=== PATIENT | male | born 1990 | race Two or more races ===

== ENCOUNTER 2024-12-07 11:10 | Emergency (ER) | payer OTHER ==
[~2024-12-07] VITALS: Ht 180.3 cm; Wt 90.7 kg
[2024-12-07 11:46] LABS: BASOPHILS # (AUTO) 0.1 K/uL (0.0-0.2); BASOPHILS % (AUTO) 0.6 % (0.0-2.0); EOSINOPHILS # (AUTO) 0.1 K/uL (0.0-0.7); EOSINOPHILS % (AUTO) 0.6 % (0.0-6.0); HEMATOCRIT 49 % (39-51); HEMOGLOBIN 15.8 g/dL (13.5-17.5); LYMPHOCYTES # (AUTO) 2.7 K/uL (0.8-4.8); LYMPHOCYTES % (AUTO) 24.5 % (20.0-44.0); MEAN CORPUSCULAR HEMOGLOBIN 29 PG (26.0-33.0); MEAN CORPUSCULAR HGB CONC 33 g/dl (31.0-36.0); MEAN CORPUSCULAR VOLUME 89 fL (80-96); MONOCYTES # (AUTO) 0.5 K/uL (0.1-1.30); MONOCYTES % (AUTO) 4.2 % (2.0-12.0); NEUTROPHILS # (AUTO) 7.7 K/uL (1.8-8.9); NEUTROPHILS % (AUTO) 70.1 % (43.0-81.0); PLATELET COUNT (AUTO) 364 K/uL (150-450); RED BLOOD CELL COUNT(AUTO) 5.44 MIL/uL (4.5-6.0)
[2024-12-07] MEDS: IV NS 0.9% 1,000 ML BAG IV ONE (11:50)
[2024-12-07 11:52] LABS: APPEARANCE,URINE CLEAR (CLEAR); BILIRUBIN,URINE NEGATIVE (NEGATIVE); BLOOD, URINE NEGATIVE Ery/uL (NEGATIVE); COLOR,URINE YELLOW (YELLOW); KETONES,URINE NEGATIVE (NEGATIVE); LEUKOCYTE ESTERASE ,URINE TRACE (NEGATIVE); NITRITE, URINE NEGATIVE (NEGATIVE); PROTEIN,URINE NEGATIVE (NEGATIVE); UGLUCOSE NEGATIVE (NEGATIVE)
[2024-12-07 11:57] LABS: CALCIUM, SERUM 9.5 mg/dL (8.5-10.1); CREATININE 0.8 mg/dL (0.6-1.3); POTASSIUM 4.2 mmol/L (3.5-5.1)
[2024-12-07 12:05] LABS: BILIRUBIN,DIRECT 0.1 mg/dL (0.0-0.2); BILIRUBIN,TOTAL 0.4 mg/dL (0.2-1.0); TOTAL PROTEIN, SERUM 7.9 g/dL (6.4-8.2)
[2024-12-07 12:06] LABS: AMPHETAMINE, URINE NEGATIVE (NEGATIVE); BARBITURATE, URINE NEGATIVE (NEGATIVE); BENZODIAZEPINE, URINE NEGATIVE (NEGATIVE); CANNABINOID, URINE NEGATIVE (NEGATIVE); COCCAINE, URINE NEGATIVE (NEGATIVE); OPIATE, URINE NEGATIVE (NEGATIVE); PHENCYCLIDINE SCREEN,URINE NEGATIVE (NEGATIVE)
[2024-12-07] MEDS: ONDANSETRON HCL/PF 4 MG/2 ML VIAL IV ONE (12:10)
[2024-12-07 12:22] LABS: ADD URINE CULTURE NO; BACTERIA,URINE Rare /HPF (None Seen); RBC,URINE 0-2 /HPF (0-2); SQUAMOUS EPITHELIAL CELL,UR 0-2 /HPF (None Seen); WBC,URINE 0-2 /HPF (0-3)
[2024-12-07] MEDS ORDERED: LIDOCAINE VISCOUS 2% UD 15 ML UDC ONE (12:32)
[2024-12-07] MEDS ORDERED: MAG HYDROX/AL HYDROX/SIMETH 30 ML UDC ONE (12:32)
[2024-12-07] MEDS ORDERED: FAMOTIDINE/PF INJ 20 MG/2 ML VIAL IV ONE (12:32)
[2024-12-07] MEDS: MAG HYDROX/AL HYDROX/SIMETH 30 ML UDC PO ONE (12:38)
[2024-12-07] MEDS: FAMOTIDINE/PF INJ 20 MG/2 ML VIAL IV ONE (12:38)
[2024-12-07] MEDS: LIDOCAINE VISCOUS 2% UD 15 ML UDC MM ONE (12:38)
[2024-12-07] MEDS ORDERED: FAMO-131 PO (14:42)
[2024-12-07] MEDS ORDERED: ONDA4TAB5 PO (14:42)
[2024-12-07 14:58] VITALS: BP 132/88; TEMP 98.6; O2SAT 98
== END 2024-12-07 14:58 | disposition home or self-care (01) ==
LOC: ER 11:27
DX: R10.9 Unspecified abdominal pain (principal); R11.2 Nausea with vomiting, unspecified; F17.200 Nicotine dependence, unspecified, uncomplicated; F19.10 Other psychoactive substance abuse, uncomplicated; Z88.2 Allergy status to sulfonamides; Z87.19 Personal history of other diseases of the digestive system; Z60.2 Problems related to living alone; Z79.899 Other long term (current) drug therapy
CPT/HCPCS: 99285; 96374; 96361; 76705; 74176; 85025; 80048; 83690; 80076; 81001; 36415; 80320; 80307; J1308; J7030; A4223; G0480

== ENCOUNTER 2024-12-24 12:16 | Inpatient (IN) | payer OTHER ==
[~2024-12-24] VITALS: Ht 182.9 cm; Wt 93.4 kg
[~2024-12-24 12:16] MED LIST: FAMO-131 PO; ONDA4TAB5 PO
[2024-12-24] MEDS: IV NS 0.9% 1,000 ML BAG IV ONE ×2 (12:55)
[2024-12-24 12:59] LABS: PLATELET COUNT (AUTO) 330 K/uL (150-450); RED BLOOD CELL COUNT(AUTO) 5.38 MIL/uL (4.5-6.0); RED CELL DISTRIBUTION WIDTH 13.9 % (11.5-15.0); WHITE BLOOD COUNT (AUTO) 19.6 K/uL (4.3-11.0)
[2024-12-24] MEDS ORDERED: ONDANSETRON HCL/PF 4 MG/2 ML VIAL ONE (12:59)
[2024-12-24] MEDS ORDERED: MORPHINE SULFATE INJ 4 MG/ML DISP.SYRIN ONE (12:59)
[2024-12-24] MEDS: ONDANSETRON HCL/PF 4 MG/2 ML VIAL IVP ONE (13:02)
[2024-12-24] MEDS: MORPHINE SULFATE INJ 2 MG/ML DISP.SYRIN IV ONE (13:03)
[2024-12-24 13:06] LABS: CALCIUM, SERUM 9.2 mg/dL (8.5-10.1); CREATININE 1.0 mg/dL (0.6-1.3); SODIUM SERUM 138.0 mmol/L (136-145); UREA NITROGEN, BLOOD 8.0 mg/dL (7-18)
[2024-12-24 13:16] LABS: ASPARTATE AMINOTRANSFERASE 34.0 U/L (15-37); TOTAL PROTEIN, SERUM 7.8 g/dL (6.4-8.2)
[2024-12-24] MEDS ORDERED: PIPERACI/TAZO 3.375GM/D5W 50ML PB IV ONE (13:26)
[2024-12-24] MEDS: PIPERACILLIN /TAZOBACTAM 3.375 G in IV D5W 50 ML IV ONE (13:30)
[2024-12-24] MEDS ORDERED: HYDROMORPHONE 1 MG/1 ML DISP.SYRIN ONE (13:52)
[2024-12-24] MEDS: HYDROMORPHONE INJ 2 MG/ML DISP.SYRIN IV ONE (14:00)
[2024-12-24 14:07] LABS: LACTIC ACID 3.0 mmol/L (0.4-2.0)
[2024-12-24 14:30] VITALS: BP 144/80; TEMP 98.1; O2SAT 97
[2024-12-24] MEDS ORDERED: TRAZ-182 PO (14:41)
[2024-12-24] MEDS ORDERED: GABA300C PO (14:41)
[2024-12-24] MEDS ORDERED: ESCI10TA PO (14:41)
[2024-12-24] MEDS ORDERED: QUET200T PO (14:41)
[2024-12-24] MEDS ORDERED: DOSING PER PHARMACY-ZOSYN IV 1 EA EA XX PRN (16:00)
[2024-12-24] MEDS ORDERED: ACETAMINOPHEN 325 MG TABLET PO PRN (16:00)
[2024-12-24 16:40] VITALS: BP 128/69; TEMP 97.9; O2SAT 100
[2024-12-24] MEDS: ENOXAPARIN SODIUM 40 MG/0.4 ML DISP.SYRIN SQ SCH (16:42)
[2024-12-24] MEDS: IV NS 0.9% 1,000 ML IV PRN (16:51)
[2024-12-24 17:57] LABS: AMPHETAMINE, URINE NEGATIVE (NEGATIVE); BARBITURATE, URINE NEGATIVE (NEGATIVE); BENZODIAZEPINE, URINE NEGATIVE (NEGATIVE); CANNABINOID, URINE NEGATIVE (NEGATIVE); COCCAINE, URINE NEGATIVE (NEGATIVE)
[2024-12-24 17:58] LABS: OPIATE, URINE POSITIVE (NEGATIVE)
[2024-12-24 18:10] LABS: APPEARANCE,URINE CLEAR (CLEAR); BLOOD, URINE NEGATIVE Ery/uL (NEGATIVE); LEUKOCYTE ESTERASE ,URINE NEGATIVE (NEGATIVE); NITRITE, URINE NEGATIVE (NEGATIVE); UGLUCOSE NEGATIVE (NEGATIVE)
[2024-12-24] MEDS: HYDROMORPHONE 1 MG/1 ML DISP.SYRIN IV PRN (18:28)
[2024-12-24 20:00] VITALS: BP 125/63; TEMP 98.1; O2SAT 97
[2024-12-24 20:48] VITALS: BP 125/63; TEMP 98.1; O2SAT 97
[2024-12-24] MEDS: PIPERACILLIN /TAZOBACTAM 3.375 G in IV D5W 100 ML IV SCH (21:50)
[2024-12-24] MEDS: PANTOPRAZOLE 40 MG VIAL IV SCH (23:33)
[2024-12-25 07:05] LABS: PLATELET COUNT (AUTO) 303 K/uL (150-450); RED BLOOD CELL COUNT(AUTO) 5.02 MIL/uL (4.5-6.0); RED CELL DISTRIBUTION WIDTH 13.9 % (11.5-15.0); WHITE BLOOD COUNT (AUTO) 9.8 K/uL (4.3-11.0)
[2024-12-25 07:30] VITALS: BP 114/66; TEMP 98.1; O2SAT 96
[2024-12-25 07:41] LABS: CALCIUM, SERUM 8.7 mg/dL (8.5-10.1); CREATININE 0.9 mg/dL (0.6-1.3); PHOSPHORUS 4.0 mg/dL (2.5-4.9); SODIUM SERUM 142.0 mmol/L (136-145); UREA NITROGEN, BLOOD 9.0 mg/dL (7-18)
[2024-12-25 10:08] VITALS: TEMP 98.1
[2024-12-25 16:00] VITALS: BP 116/58; TEMP 98.1; O2SAT 98
[2024-12-25 20:00] VITALS: BP 121/82; TEMP 98.4; O2SAT 94
[2024-12-26 07:30] VITALS: BP 111/64; TEMP 97.5; O2SAT 97
[2024-12-26 09:41] LABS: PLATELET COUNT (AUTO) 301 K/uL (150-450); RED BLOOD CELL COUNT(AUTO) 5.05 MIL/uL (4.5-6.0); RED CELL DISTRIBUTION WIDTH 13.5 % (11.5-15.0); WHITE BLOOD COUNT (AUTO) 9.5 K/uL (4.3-11.0)
[2024-12-26 10:25] LABS: CALCIUM, SERUM 8.6 mg/dL (8.5-10.1); CREATININE 0.7 mg/dL (0.6-1.3); SODIUM SERUM 140.0 mmol/L (136-145); UREA NITROGEN, BLOOD 11.0 mg/dL (7-18)
[2024-12-26] MEDS: FAMOTIDINE (20 MG) 20 MG TABLET PO SCH (11:21)
[2024-12-26] MEDS ORDERED: GABAPENTIN 300 MG CAPSULE PO PRN (11:30)
[2024-12-26 11:34] LABS: ASPARTATE AMINOTRANSFERASE 56.0 U/L (15-37); TOTAL PROTEIN, SERUM 7.1 g/dL (6.4-8.2)
[2024-12-26] MEDS: HYDROCODONE/APAP 5/325MG TABLET PO PRN (14:17)
[2024-12-26 16:25] VITALS: BP 119/72; TEMP 98.1; O2SAT 97
[2024-12-26 20:00] VITALS: BP 119/90; TEMP 97.7; O2SAT 97
[2024-12-26] MEDS: ESCITALOPRAM OXALATE (10 MG) 10 MG TABLET PO SCH (21:24)
[2024-12-26] MEDS: QUETIAPINE FUMARATE 100 MG TABLET PO SCH (21:24)
[2024-12-26] MEDS: TRAZODONE 50 MG TABLET PO SCH (21:24)
[2024-12-27 07:30] VITALS: BP 107/63; TEMP 97.7; O2SAT 97
[2024-12-27] MEDS: PANTOPRAZOLE 40 MG/PACK PACK PO SCH (08:57)
[2024-12-27] MEDS: CHOLESTYRAMINE/ASPARTAME 4 G/PKT PACKET PO SCH (12:20)
[2024-12-27] MEDS: DICYCLOMINE HCL 10 MG CAPSULE PO SCH (12:20)
[2024-12-27 20:00] VITALS: BP 121/77; TEMP 98.4; O2SAT 96
[2024-12-28] MEDS: ONDANSETRON HCL/PF 4 MG/2 ML VIAL IVP PRN (03:46)
[2024-12-28] MEDS: HYDROCODONE/APAP 5/325MG TABLET PO STA (05:15)
[2024-12-28] MEDS ORDERED: CHOL4PAC4 PO (12:27)
== END 2024-12-28 10:00 | disposition home or self-care (01) | DRG 445 ==
LOC: ER 12:18 → MED 14:11
PROVIDERS: ADMIT Nurse Practitioner Acute Care; ATTEND Nurse Practitioner Acute Care
DX: K80.20 Calculus of gallbladder without cholecystitis without obstruction (principal); D68.69 Other thrombophilia; E87.20 Acidosis, unspecified; E66.9 Obesity, unspecified; Z88.2 Allergy status to sulfonamides; Z68.27 Body mass index [BMI] 27.0-27.9, adult; F11.10 Opioid abuse, uncomplicated; R74.8 Abnormal levels of other serum enzymes; K82.8 Other specified diseases of gallbladder
CPT/HCPCS: 36415; 76705-TC; 78226; 80048-TC; 80076-TC; 83605-TC; 83690-TC; 83735-TC; 84100-TC; 85025-TC; 87040-TC; 87081-TC; 87086-TC; A4223; A9537; G0378; G0480; J1171; J1650; J2270; J2405; J2470; J2543; J7030; J7040; J7050; J7060; Q0163